=== PATIENT | female | born 1995 | race African-American/Black ===

== ENCOUNTER 2019-11-24 11:56 | Emergency (ER) | payer MEDICAID ==
[~2019-11-24] VITALS: Ht 165.1 cm; Wt 65.0 kg
[2019-11-24] MEDS ORDERED: KETOROLAC 30MG/ML VIAL IM SCH (13:00)
[2019-11-24 14:46] VITALS: BP 112/69
== END 2019-11-24 14:52 | disposition home or self-care (01) ==
LOC: ER 11:56
DX: S93.491A Sprain of other ligament of right ankle, initial encounter (principal); J45.909 Unspecified asthma, uncomplicated; V43.62XA Car passenger injured in collision with other type car in traffic accident, initial encounter; W22.12XA Striking against or struck by front passenger side automobile airbag, initial encounter; Y93.89 Activity, other specified; Y92.488 Other paved roadways as the place of occurrence of the external cause
CPT/HCPCS: 73610; 81025; 96372; 99283; J1885